=== PATIENT | male | born 1950 | race Caucasian/White ===

== ENCOUNTER 2016-04-24 18:47 | Emergency (ER) | payer MEDICARE, OTHER ==
--- NOTE | 2016-04-24 20:10 | EDM.PDOC ---
ED HPI RENAL/ - General Chief Complaint: Genitourinary Problem Stated Complaint: CATHEDAR Time Seen by Provider: 04/24/16 19:55 Source: Reports: Patient History Limitations: Reports: No limitations - History of Present Illness INITIAL COMMENTS - FREE TEXT/NARRATIVE: 65 yo male with an indwelling johnston presents thinking his catheter is plugged. The catheter bag is still filling, but has some pressure. No fever. Has an appt coming up to see urology. Drinks a lot of water daily. Symptom Onset Date: 04/24/16 Timing/Duration: Reports: Hour(s):, Gradual onset Location: Reports: suprapubic Quality: Reports: fullness Severity: mild Improves with: Reports: other (None) Worsens with: Reports: other (None) Context: Reports: other (indwelling johnston x 2 weeks.) Associated Symptoms: Reports: denies other symptoms Treatment(s) AMBULANCE OFFICER: Reports: Other (see below) (none) - Related Data Allergies/ADRs: Allergies Allergy/AdvReac Type Severity Reaction Status Date / Time No Known Allergies Allergy Verified 04/15/16 17:14 Home Meds: Home Meds Atenolol [Tenormin] 25 mg PO DAILY 01/27/16 [History] NIFEdipine [Procardia XL] 30 mg PO DAILY 01/27/16 [History] Polyethylene Glycol 3350 [MiraLAX] 17 gm PO DAILY 01/29/16 [History] RABEprazole Sodium [Rabeprazole Sodium] 60 mg PO BID 02/19/16 [History] Alfuzosin HCl [Alfuzosin HCl ER] 10 mg PO DAILY 04/07/16 [History] Aspirin [Halfprin] 81 mg PO DAILY 04/07/16 [History] Finasteride 5 mg PO DAILY 04/07/16 [History] traMADol HCl [Tramadol HCl] 50 mg PO Q8HR PRN 04/07/16 [History] Past Medical History - Past Health History Medical/Surgical History: Denies Medical/Surgical History HEENT History: Reports: Impaired vision Cardiovascular History: Reports: Hypertension Gastrointestinal History: Reports: Chronic constipation, Diverticulosis, Gastritis Genitourinary History: Reports: Prostate disorder Other Genitourinary History: HX OF ENLARGED PROSTATE - Infectious Disease History Infectious Disease History: Reports: Chicken pox, Measles - Past Surgical History GI Surgical History: Reports: Appendectomy, Cholecystectomy, Colonoscopy Social & Family History - Family History Family Medical History: Unobtainable - Tobacco Use Smoking Status *Q: Never Smoker Second Hand Smoke Exposure: No - Caffeine Use Caffeine Use: Reports: Coffee - Recreational Drug Use Recreational Drug Use: No ED ROS GENERAL - Review of Systems Review Of Systems: See Below Constitutional: Reports: no symptoms Respiratory: Reports: no symptoms Cardiovascular: Reports: No symptoms GI/Abdominal: Reports: Other (mild suprapubic pressure) : Denies: dysuria, flank pain, frequency, hematuria, urgency, urinary retention Musculoskeletal: Reports: no symptoms ED EXAM, RENAL/ - Physical Exam Exam: See Below Exam Limited By: No limitations General Appearance: alert, WD/WN, no apparent distress Eye Exam: bilateral eye: normal inspection Ears: normal external exam, normal canal, hearing grossly normal Nose: normal inspection, normal mucosa, no blood Throat/Mouth: Normal inspection, Normal lips, Normal gums, Normal oropharynx, Normal voice, No airway compromise Head: atraumatic, normocephalic Neck: normal inspection Respiratory/Chest: no respiratory distress, no accessory muscle use GI/Abdominal: soft, non tender Back Exam: normal inspection Extremities: normal inspection, normal range of motion, non-tender, no pedal edema Neurological: alert, oriented, CN II-XII intact, normal cognition, normal gait, no motor/sensory deficits Psychiatric: normal affect, normal mood Skin Exam: Warm, Dry, Intact, Normal color, No rash Lymphatic: no adenopathy Course - Vital Signs Text/Narrative:: Accu Check 87 bladder scan-almost no urine measured in bladder - Orders/Labs/Meds Orders: Active Orders 24 hr Category Date Time Status Accu Check [Blood Glucose Check, Bedside] [RC] ONETIME Care 04/24/16 19:55 Active Labs: Laboratory Tests 04/24/16 04/24/16 Range/Units 19:54 20:03 POC Glucose 87 (80-116) mg/dL Urine Color Yellow (YELLOW) Urine Appearance Clear (CLEAR) Urine pH 7.0 H (5.0-6.5) Ur Specific [place] 1.005 L (1.010-1.025) Urine Protein Negative (NEGATIVE) mg/dL Urine Glucose (UA) Normal (NEGATIVE) mg/dL Urine Ketones Negative (NEGATIVE) mg/dL Urine Occult Blood Large H (NEGATIVE) Urine Nitrite Negative (NEGATIVE) Urine Bilirubin Negative (NEGATIVE) Urine Urobilinogen Normal (NEGATIVE) mg/dL Ur Leukocyte Esterase Negative (NEGATIVE) Urine RBC 5-10 (0) Urine WBC 0-5 (0) Ur Squamous Epith Cells Occasional (NS,R,O) Urine Bacteria Rare H (NS) Departure - Departure Time of Disposition: 20:27 Disposition: Home, Self-Care 01 Condition: good Clinical Impression: Encounter for assessment of Johnston catheter - My Orders Last 24 Hours: My Active Orders 04/24/16 19:55 Accu Check [Blood Glucose Check, Bedside] [RC] ONETIME - Assessment/Plan Last 24 Hours: My Active Orders 04/24/16 19:55 Accu Check [Blood Glucose Check, Bedside] [RC] ONETIME
[2016-04-24 20:35] VITALS: BP 141/79
== END 2016-04-24 20:35 | disposition home or self-care (01) ==
LOC: FB.ED 18:47
DX: Z46.6 Encounter for fitting and adjustment of urinary device (principal); I10 Essential (primary) hypertension; Z79.82 Long term (current) use of aspirin; Z79.899 Other long term (current) drug therapy; Z90.49 Acquired absence of other specified parts of digestive tract
CPT/HCPCS: 81001; 82962; 99281; 99283

== ENCOUNTER 2016-06-10 18:47 | Emergency (ER) | payer MEDICARE, OTHER ==
--- NOTE | 2016-06-10 19:12 | EDM.PDOC ---
ED HPI RENAL/ - General Stated Complaint: blood in urine Time Seen by Provider: 06/10/16 18:50 Source: Reports: Patient, Family History Limitations: Reports: No limitations - History of Present Illness INITIAL COMMENTS - FREE TEXT/NARRATIVE: c/o blood in urine x 12h h/o difficulty voiding x ~6m, saw urologist Dr Yusuf, cystoscopy apparently was neg, no bx done, no dx of CA, told his bladder muscle was "weak", bladder not enlarged or contracted, went for bladder manometry 05/07, bladder filled with water and a sensor placed in rectum and bladder, pt was supposed to void but was unable to do so. He began self cath QID on 05/07 which he did for 3-4d, then able to void better and has cath'ed 1-2x/d ever since. Today he had clots when he cathed, some discomfort, no f/c/d, no n/v, nl BM. No back pain. Told his prostate is "slightly enlarged" but is not causing his difficulty voiding. Meds: include alfuzosin 10 mg daily and finasteride 5 mg daily, also takes nifedipine, atenolol, ASA, on tramadol prn and rabeprazole and Miralax. - Related Data Allergies/ADRs: Allergies Allergy/AdvReac Type Severity Reaction Status Date / Time No Known Allergies Allergy Verified 06/10/16 19:02 Home Meds: Home Meds Atenolol [Tenormin] 25 mg PO DAILY 01/27/16 [History] NIFEdipine [Procardia XL] 30 mg PO DAILY 01/27/16 [History] Polyethylene Glycol 3350 [MiraLAX] 17 gm PO DAILY 01/29/16 [History] RABEprazole Sodium [Rabeprazole Sodium] 60 mg PO BID 02/19/16 [History] Alfuzosin HCl [Alfuzosin HCl ER] 10 mg PO DAILY 04/07/16 [History] Aspirin [Halfprin] 81 mg PO DAILY 04/07/16 [History] Finasteride 5 mg PO DAILY 04/07/16 [History] traMADol HCl [Tramadol HCl] 50 mg PO Q8HR PRN 04/07/16 [History] Past Medical History - Past Health History Medical/Surgical History: Denies Medical/Surgical History HEENT History: Reports: Impaired vision Cardiovascular History: Reports: Hypertension Gastrointestinal History: Reports: Chronic constipation, Diverticulosis, Gastritis Genitourinary History: Reports: Prostate disorder Other Genitourinary History: HX OF ENLARGED PROSTATE - Infectious Disease History Infectious Disease History: Reports: Chicken pox, Measles - Past Surgical History GI Surgical History: Reports: Appendectomy, Cholecystectomy, Colonoscopy Social & Family History - Family History Family Medical History: Unobtainable - Tobacco Use Smoking Status *Q: Never Smoker Second Hand Smoke Exposure: No - Caffeine Use Caffeine Use: Reports: Coffee - Recreational Drug Use Recreational Drug Use: No ED ROS GENERAL - Review of Systems Review Of Systems: See Below Constitutional: Reports: no symptoms HEENT: Reports: No symptoms Respiratory: Reports: No Symptoms Endocrine: Reports: no symptoms GI/Abdominal: Reports: No symptoms : Reports: hematuria, urinary retention Musculoskeletal: Reports: no symptoms Skin: Reports: no symptoms Neurological: Reports: No Symptoms Psychiatric: Reports: No symptoms Hematologic/Lymphatic: Reports: no symptoms Immunologic: Reports: no symptoms ED EXAM, RENAL/ - Physical Exam Exam: See Below Exam Limited By: Other (alert, nonill) General Appearance: alert, WD/WN, no apparent distress Nose: normal inspection, normal mucosa, no blood Throat/Mouth: Normal inspection, Normal lips, Normal voice, No airway compromise Head: atraumatic, normocephalic Neck: normal inspection, supple Respiratory/Chest: no respiratory distress, lungs clear, normal breath sounds, prolonged expiration Cardiovascular: regular rate, rhythm GI/Abdominal: soft, non tender, no distention Back Exam: normal inspection, full range of motion, other (no CVAT) Extremities: normal inspection, normal range of motion, non-tender, no pedal edema Neurological: alert, oriented, CN II-XII intact, normal cognition, normal gait, no motor/sensory deficits Psychiatric: normal affect, normal mood Skin Exam: Warm, Dry, Intact, Normal color, No rash Lymphatic: no adenopathy Course - Vital Signs Last Recorded V/S: Last Vital Signs Temp 36.7 C 06/10/16 19:10 Pulse 69 06/10/16 19:10 Resp 18 06/10/16 19:10 BP 255/88 H 06/10/16 19:10 Pulse Ox 100 06/10/16 19:10 - Orders/Labs/Meds Orders: Active Orders 24 hr Category Date Time Status Bladder Irrigation [RC] CONTINUOUS Care 06/10/16 19:07 Active CULTURE URINE [RM] Stat Lab 06/10/16 18:50 Received Labs: Laboratory Tests 06/10/16 06/10/16 06/10/16 Range/Units 18:50 19:10 19:10 WBC 3.7 L (4.5-12.0) X10-3/uL RBC 4.42 (4.30-5.75) x10(6)uL Hgb 13.9 (11.5-15.5) g/dL Hct 41.4 (30.0-51.3) % MCV 93.8 (80-96) fL MCH 31.5 (27.7-33.6) pg MCHC 33.6 (32.2-35.4) g/dL RDW 14.1 (11.5-15.5) % Plt Count 156 (125-369) X10(3)uL MPV 9.4 (7.4-10.4) fL Neut % (Auto) 61.3 (46-82) % Lymph % (Auto) 21.6 (13-37) % Pettis % (Auto) 11.9 (4-12) % Eos % (Auto) 3 (1.0-5.0) % Baso % (Auto) 3 H (0-2) % Neut # (Auto) 2.3 (1.6-8.3) # Lymph # (Auto) 0.8 (0.6-5.0) # Pettis # (Auto) 0.4 (0.0-1.3) # Eos # (Auto) 0.1 (0.0-0.8) # Baso # (Auto) 0.1 (0.0-0.2) # PT 10.7 (8.7-11.1) INR 1.06 (0.89-1.13) Sodium (135-145) mmol/L Potassium (3.5-5.3) mmol/L Chloride (100-110) mmol/L Carbon Dioxide (23-29) mmol/L BUN (8-23) mg/dL Creatinine (0.6-1.3) mg/dL Est Cr Clr Drug Dosing Estimated GFR (MDRD) (>60) BUN/Creatinine Ratio (9-20) Glucose (80-116) mg/dL Calcium (8.6-10.2) mg/dL Total Bilirubin (0.1-1.3) mg/dL AST (5-27) IU/L ALT (14-26) IU/L Alkaline Phosphatase (56-112) IU/L C-Reactive Protein (0.0-1.0) mg/dL Total Protein (6.0-8.0) g/dL Albumin (3.2-4.6) g/dL Globulin g/dL Albumin/Globulin Ratio Urine Color Red (YELLOW) Urine Appearance Clear (CLEAR) Urine pH 7.0 H (5.0-6.5) Ur Specific [place] 1.010 (1.010-1.025) Urine Protein 500 H (NEGATIVE) mg/dL Urine Glucose (UA) Normal (NEGATIVE) mg/dL Urine Ketones Negative (NEGATIVE) mg/dL Urine Occult Blood Large H (NEGATIVE) Urine Nitrite Negative (NEGATIVE) Urine Bilirubin Negative (NEGATIVE) Urine Urobilinogen Normal (NEGATIVE) mg/dL Ur Leukocyte Esterase Negative (NEGATIVE) Urine RBC >100 H (0) Urine WBC 0-5 (0) Ur Squamous Epith Cells Few H (NS,R,O) Urine Bacteria Few H (NS) 06/10/ Range/Units 19:10 WBC (4.5-12.0) X10-3/uL RBC (4.30-5.75) x10(6)uL Hgb (11.5-15.5) g/dL Hct (30.0-51.3) % MCV (80-96) fL MCH (27.7-33.6) pg MCHC (32.2-35.4) g/dL RDW (11.5-15.5) % Plt Count (125-369) X10(3)uL MPV (7.4-10.4) fL Neut % (Auto) (46-82) % Lymph % (Auto) (13-37) % [place] % (Auto) (4-12) % Eos % (Auto) (1.0-5.0) % Baso % (Auto) (0-2) % Neut # (Auto) (1.6-8.3) # Lymph # (Auto) (0.6-5.0) # Pettis # (Auto) (0.0-1.3) # Eos # (Auto) (0.0-0.8) # Baso # (Auto) (0.0-0.2) # PT (8.7-11.1) INR (0.89-1.13) Sodium 137 (135-145) mmol/L Potassium 3.6 (3.5-5.3) mmol/L Chloride 103 (100-110) mmol/L Carbon Dioxide 26 (23-29) mmol/L BUN 9 (8-23) mg/dL Creatinine 0.9 (0.6-1.3) mg/dL Est Cr Clr Drug Dosing TNP Estimated GFR (MDRD) > 60 (>60) BUN/Creatinine Ratio 10.0 (9-20) Glucose 105 (80-116) mg/dL Calcium 8.8 (8.6-10.2) mg/dL Total Bilirubin 0.7 (0.1-1.3) mg/dL AST 17 D (5-27) IU/L ALT 19 D (14-26) IU/L Alkaline Phosphatase 64 (56-112) IU/L C-Reactive Protein < 0.5 (0.0-1.0) mg/dL Total Protein 6.9 (6.0-8.0) g/dL Albumin 3.8 (3.2-4.6) g/dL Globulin 3.1 g/dL Albumin/Globulin Ratio 1.2 Urine Color (YELLOW) Urine Appearance (CLEAR) Urine pH (5.0-6.5) Ur Specific [place] (1.010-1.025) Urine Protein (NEGATIVE) mg/dL Urine Glucose (UA) (NEGATIVE) mg/dL Urine Ketones (NEGATIVE) mg/dL Urine Occult Blood (NEGATIVE) Urine Nitrite (NEGATIVE) Urine Bilirubin (NEGATIVE) Urine Urobilinogen (NEGATIVE) mg/dL Ur Leukocyte Esterase (NEGATIVE) Urine RBC (0) Urine WBC (0) Ur Squamous Epith Cells (NS,R,O) Urine Bacteria (NS) Meds: Medications Discontinued Medications Generic Name Dose Route Start Last Admin Trade Name Freq PRN Reason Stop Dose Admin Lidocaine HCl 15 ml 06/10/16 19:15 06/10/16 20:03 Xylocaine 2% Viscous PO 06/10/16 19:16 15 ml ONETIME ONE Administration - Re-Assessments/Exams Free Text/Narrative Re-Assessment/Exam: 06/10/16 20:30 labs reviewed with pt, all unremarkable, 2.7 liter NS used to irrigate the bladder, red urine turned light pink, however no clots in effluent, pt had trouble with leg bag in past, kept getting occluded, however there was molly blood without clots that followed the catheter as it was gently removed, this suggests that the bleeding was from the urethra and not the bladder and that a johnston for 2d will be best to allow the urethera to heal, pt reluctantly agrees. No evidence of infection in urine. CBC and CRP wnl. Pt has apt with PCP Dr Godoy tomorrow afternoon. Departure - Departure Time of Disposition: 20:34 Disposition: [facility] Condition: good Clinical Impression: Gross hematuria, Urethral bleeding Additional Instructions: There is no evidence of infection. Your clotting proteins and platelets are all normal. Leave in the johnston for 48 hours to allow sufficient time for the leaking blood vessel in the urethra to heal. Continue your current meds. Call your urologist in the morning for further instructions. See Dr Godoy tomorrow afternoon as previously scheduled. Return to ED if you are feeling worse. Call your Physician or Return to Emergency Department if: * Your condition worsens in any way. * You develop fever greater than 100.4. * You have vomiting that does not stop with medications. * You have pain that is not controlled with medications. - My Orders Last 24 Hours: My Active Orders 06/10/16 18:50 CULTURE URINE [RM] Stat 06/10/16 19:07 Bladder Irrigation [RC] CONTINUOUS - Assessment/Plan Last 24 Hours: My Active Orders 06/10/16 18:50 CULTURE URINE [RM] Stat 06/10/16 19:07 Bladder Irrigation [RC] CONTINUOUS
[2016-06-10] MEDS ORDERED: Lidocaine 2% Viscous Solution 15 ML Cup PO ONE (19:15)
[2016-06-10 21:11] VITALS: BP 140/84
== END 2016-06-10 20:50 | disposition home or self-care (01) ==
LOC: FB.ED 18:47
DX: N36.8 Other specified disorders of urethra (principal); R31.0 Gross hematuria; I10 Essential (primary) hypertension; Z79.899 Other long term (current) drug therapy; Z79.82 Long term (current) use of aspirin; Z90.49 Acquired absence of other specified parts of digestive tract
CPT/HCPCS: 36415; 51700; 80053; 81001; 85025; 85610; 86140; 87086; 99283; A9270

== ENCOUNTER 2016-06-29 06:32 | Day surgery (SDC) | payer MEDICARE, OTHER ==
[2016-06-29] MEDS ORDERED: Sodium Chloride 0.9% 10 ML Syringe FLUSH PRN (06:45)
[2016-06-29] MEDS ORDERED: Lactated Ringers 1,000 ML IV SCH (06:45)
[2016-06-29] MEDS ORDERED: ceFAZolin 2 GM in Premix Bag 1 BAG IV ONE (07:45)
[2016-06-29] MEDS ORDERED: ePHEDrine 50 MG/ML SDV IV ONE (08:00)
[2016-06-29] MEDS ORDERED: Propofol 200 MG/20 ML SDV IV ONE (08:00)
[2016-06-29] MEDS ORDERED: Midazolam 1 MG/ML 2 ML SDV IV ONE (08:00)
[2016-06-29] MEDS ORDERED: Rocuronium 50 MG/5 ML Vial IV ONE (08:00)
[2016-06-29] MEDS ORDERED: Ondansetron 4 MG/2 ML SDV IVPUSH ONE (08:00)
[2016-06-29] MEDS ORDERED: Ketorolac 30 MG/ML SDV IVPUSH ONE (08:00)
[2016-06-29] MEDS ORDERED: Succinylcholine/Normal Saline 200 MG/10 ML Syringe IV ONE (08:00)
[2016-06-29] MEDS ORDERED: fentaNYL 100 MCG/2 ML SDV IV ONE (08:00)
--- NOTE | 2016-06-29 08:12 | PCM.PN ---
- General Info Date of Service: 06/29/16 - Review of Systems Systems Review Comment:: 65 y/o male here for repair of epigastric hernia. He is stable to proceed with no significant change in his health status since his recent clinic evaluation and EGD. The site is confirmed with the patient and marked. Expectations and anticipated post op instructions again reviewed with the patient. He agrees to proceed accepting risks which have been reviewed with the patient. - Patient Data Vitals - most recent: Last Vital Signs Temp 98.3 F 06/29/16 07:00 Pulse 64 06/29/16 07:00 Resp 15 06/29/16 07:00 BP 128/76 06/29/16 07:00 Pulse Ox 97 06/29/16 07:00 Weight - most recent: 189 lb Med Orders - Current: Current Medications Lactated Ringer's (Ringers, Lactated) 1,000 mls @ 125 mls/hr IV ASDIRECTED STACI Last Admin: 06/29/16 07:43 Dose: 125 mls/hr Cefazolin Sodium/Dextrose 2 gm (/ Premix) 50 mls @ 100 mls/hr IV ONETIME ONE Stop: 06/29/16 08:14 Last Admin: 06/29/16 07:43 Dose: 100 mls/hr Sodium Chloride (Saline Flush) 10 ml FLUSH ASDIRECTED PRN PRN Reason: Keep Vein Open - Problem List Review Problem List Initiated/Reviewed/Updated: Yes - My Orders Last 24 Hours: My Active Orders 06/28/16 12:53 Resuscitation Status Routine 06/29/16 06:45 Patient Status [ADT] Routine Antiembolic Devices [RC] .Routine Patient to Empty Bladder [RC] ASDIRECTED VTE/DVT Education [RC] Click To Edit Verify Patient Consent Obtain [RC] ASDIRECTED Lactated Ringers [Ringers, Lactated] 1,000 ml IV ASDIRECTED Sodium Chloride 0.9% [Saline Flush] 10 ml FLUSH ASDIRECTED PRN DVT/VTE Prophylaxis Reflex [OM.PC] Routine Peripheral IV Insertion Adult [OM.PC] Routine Sequential Compression Device [OM.PC] Routine 06/29/16 07:45 ceFAZolin [Ancef] 2 gm Premix Bag 1 bag IV ONETIME - Assessment Assessment:: Epigastric Hernia - Plan Plan:: Repair epigastric hernia
[2016-06-29] MEDS ORDERED: Bupivacaine 0.5%/EPINEPHrine 1:200,000 50 ML MDV INJECT ONE (08:51)
[2016-06-29] MEDS ORDERED: Lidocaine 1% 20 ML MDV INJECT ONE (08:51)
--- NOTE | 2016-06-29 09:06 | PCM.OPNOTE ---
- General Post-Op/Procedure Note Date of Surgery/Procedure: 06/29/16 Operative Procedure(s): Exploration of epigastric hernia repair site and removal of old sutures Findings: Intact mesh repair of epigastric hernia with old prolene sutures in place. No evidence of recurrence of hernia or of other complication Pre Op Diagnosis: Epigastric pain possible recurrence of epigastric hernia Post-Op Diagnosis: intact epigastric hernia repair with mesh and repair sutures in place Anesthesia Technique: General ET tube Primary Surgeon: Ander Gaspar Pathology: none Output, Urine Amount: 0 EBL in mLs: 10 Complications: None Condition: Good
[2016-06-29] MEDS ORDERED: Acetaminophen/HYDROcodone 325-5 MG Tab PO ONE (09:48)
[2016-06-29 10:55] VITALS: BP 98/55
--- NOTE | 2016-06-29 12:45 | OR ---
DATE OF OPERATION: 06/29/2016 SURGEON: Ander Gaspar MD PREOPERATIVE DIAGNOSIS: Epigastric pain, possible recurrent epigastric hernia. POSTOPERATIVE DIAGNOSIS: Intact epigastric hernia repair with retained repair sutures. OPERATION PERFORMED: Exploration of epigastric hernia repair with removal of old sutures. INDICATIONS FOR SURGERY: This 65-year-old male has localized epigastric pain and tenderness. This has not responded to other attempts at control of the pain, and workup has not identified any specific abnormalities in this area. The patient does have tenderness on palpation in the area where a previous epigastric hernia was repaired with mesh. The tenderness seems to be most significant where palpable sutures are noted. Exploration of this wound to look for any sign of recurrence or other abnormality is planned. FINDINGS: The mesh repair of the epigastric hernia is intact. The mesh is lying smoothly over the repair and there is no surrounding fascial defect. The mesh does not appear inflamed or otherwise abnormal in any way. Multiple Prolene sutures which had been placed to secure the mesh in position are still present and it is felt that the presence of these sutures especially on palpation is likely the source of the patient's pain. PROCEDURE IN DETAIL: The patient was taken to the operating room. He was given general endotracheal anesthesia. The epigastric area was sterilely prepped and draped. A vertical midline incision was made over the area where the patient had been having pain utilizing the healed surgical scar. Exploration down onto the underlying mesh was carried out. The full extent of the mesh is carefully examined. The surrounding fascia was also examined and found to be intact. The mesh was intact and solidly in place with no indication of any hernia recurrence. There were no visible signs of acute inflammation or infection but multiple permanent Prolene sutures were present and each of these was removed as it was felt that these were likely the source of the patient's pain. After removal of these sutures, careful palpation did not reveal any additional abnormalities or unusual folds in the mesh and no sign of complication was noted. The wound was then closed approximating the subcutaneous tissue with interrupted 4-0 Vicryl and the skin with running 4-0 Vicryl subcuticular stitch, Steri-Strips, and Benzoin. Antibiotic ointment and a sterile dressing was placed. The patient was then awakened, extubated, and taken from the operating room in satisfactory condition. ESTIMATED BLOOD LOSS: 10 mL. COMPLICATIONS: None. PROGNOSIS: Good. /[id number] NANDINI/CINDI
== END 2016-06-29 10:40 | disposition home or self-care (01) ==
LOC: FB.SDS 06:32
PROVIDERS: ATTEND Surgery
DX: K43.9 Ventral hernia without obstruction or gangrene (principal); Z88.8 Allergy status to other drugs, medicaments and biological substances; Z79.899 Other long term (current) drug therapy
CPT/HCPCS: 00750; 49560; A9270; J0690; J7120; J1885; J2250; J2405; J2704; J3010

== ENCOUNTER 2016-07-03 04:51 | Emergency (ER) | payer MEDICARE, OTHER ==
--- NOTE | 2016-07-03 05:51 | EDM.PDOC ---
ED HPI GENERAL MEDICAL PROBLEM - General Chief Complaint: General Stated Complaint: WEAKNESS,LIGHTHEADED Time Seen by Provider: 07/03/16 05:20 Source of Information: Reports: Patient, Old records History Limitations: Reports: No limitations - History of Present Illness INITIAL COMMENTS - FREE TEXT/NARRATIVE: Morgan comes in with a sense of dizziness ie loss of balance with tendency to fall towards the R for about a week, significance unknown. Sxs began with most recent hospitalization for repair of abdominal defect last week, and he initially thought this was related to Percocet tabs for sxs relief. He stopped this med after 1 day, but sxs never completely resolved. There is no headache, hearing loss, tinnitus, visual impairment, head injury, chest pain or SOB. He has tried no meds for relief of sxs or discussed with PCP. Abdominal Pain Score (Numeric/FACES): 2 - Related Data Allergies Allergy/AdvReac Type Severity Reaction Status Date / Time oxybutynin [From Ditropan] AdvReac Unknown Abdominal Verified 07/03/16 05:00 Pain Home Meds: Home Meds Atenolol [Tenormin] 25 mg PO DAILY 01/27/16 [History] NIFEdipine [Procardia XL] 30 mg PO DAILY 01/27/16 [History] Polyethylene Glycol 3350 [MiraLAX] 17 gm PO DAILY 01/29/16 [History] RABEprazole Sodium [Rabeprazole Sodium] 60 mg PO BID 02/19/16 [History] Alfuzosin HCl [Alfuzosin HCl ER] 10 mg PO DAILY 04/07/16 [History] Finasteride 5 mg PO DAILY 04/07/16 [History] Hydrocodone/Acetaminophen [Hydrocodon-Acetaminophen 5-325] 1 - 2 tab PO Q4HR PRN #20 tablet 06/29/16 [Rx] Past Medical History - Past Health History Medical/Surgical History: Denies Medical/Surgical History HEENT History: Reports: Impaired vision Cardiovascular History: Reports: Hypertension Respiratory History: Reports: None Gastrointestinal History: Reports: Chronic constipation, Diverticulosis, Gastritis Genitourinary History: Reports: Prostate disorder, Other (see below) Other Genitourinary History: HX OF ENLARGED PROSTATE, PATIENT HAS TO STRAIGHT CATH HIMSELF DUE TO BEING UNABLE TO VOID. Musculoskeletal History: Reports: None Neurological History: Reports: None Psychiatric History: Reports: None Endocrine/Metabolic History: Reports: None Hematologic History: Reports: None Immunologic History: Reports: None Oncologic (Cancer) History: Reports: None Dermatologic History: Reports: None - Infectious Disease History Infectious Disease History: Reports: Chicken pox, Measles - Past Surgical History Head Surgeries/Procedures: Reports: None HEENT Surgical History: Reports: Oral surgery Cardiovascular Surgical History: Reports: None Respiratory Surgical History: Reports: None GI Surgical History: Reports: Appendectomy, Cholecystectomy, Colonoscopy, Hernia , abdominal, Hernia, inguinal Endocrine Surgical History: Reports: None Neurological Surgical History: Reports: None Musculoskeletal Surgical History: Reports: None Oncologic Surgical History: Reports: None Social & Family History - Family History Family Medical History: Unobtainable - Tobacco Use Smoking Status *Q: Former Smoker Used Tobacco, but Quit: Yes Month Tobacco Last Used: unknown Second Hand Smoke Exposure: No - Caffeine Use Caffeine Use: Reports: None - Recreational Drug Use Recreational Drug Use: No ED ROS GENERAL - Review of Systems Review Of Systems: See Below Constitutional: Reports: weight loss (reported wt loss of #20 since first of the year) HEENT: Reports: Other (dizziness) Respiratory: Reports: No Symptoms Cardiovascular: Reports: No symptoms Endocrine: Reports: no symptoms GI/Abdominal: Reports: Abdominal pain (epigastric pains that have improved since surgery ) : Reports: urinary retention (self caths) Musculoskeletal: Reports: no symptoms Skin: Reports: no symptoms Neurological: Reports: Dizziness (loss of balance), Difficulty Walking Psychiatric: Reports: No symptoms Hematologic/Lymphatic: Reports: no symptoms Immunologic: Reports: no symptoms ED EXAM, GENERAL - Physical Exam Exam: See Below Exam Limited By: No limitations General Appearance: alert, WD/WN, no apparent distress, anxious Eye Exam: bilateral eye: normal fundi, normal inspection, PERRL Ears: normal external exam, normal canal, hearing grossly normal, normal TMs Nose: normal inspection Throat/Mouth: Normal inspection, Normal lips, Normal teeth, Normal oropharynx, Normal voice Head: normocephalic Neck: normal inspection, supple, non-tender, full range of motion Respiratory/Chest: lungs clear, normal breath sounds, no accessory muscle use, chest non-tender Cardiovascular: normal peripheral pulses, regular rate, rhythm, no murmur GI/Abdominal: normal bowel sounds, soft, no organomegaly, no distention, no mass , other (healing midline incision) (Male) Exam: Deferred Rectal (Males) Exam: Deferred Back Exam: normal inspection Extremities: normal inspection Neurological: alert, oriented, CN II-XII intact, normal cognition, no motor/ sensory deficits, abnormal gait (shuffling, hesitant) Psychiatric: normal affect, anxious Skin Exam: Warm, Dry, Intact Lymphatic: no adenopathy Course - Vital Signs Text/Narrative:: Morgan remained stable at the [facility] ED. CBC noted Hgb 15.0 gm, WBC 5,000, plts 172,000; Troponin I <0.01, non FBS 117 mg%, other values WNL on CMP; ekg noting NSR, KS 0.208 sec; TSH normal, ESR normal; Head CT w and wo contrast: no diagnostic abnormality. An explanation for imbalance could not be determined with certainty at this time. Follow up with PCP. Last Recorded V/S: Last Vital Signs Temp 36.3 C 07/03/16 05:08 Pulse 78 07/03/16 05:08 Resp 20 07/03/16 05:08 BP 135/90 07/03/16 05:08 Pulse Ox 98 07/03/16 05:08 Orthostatic Blood Pressure [ 123/73 Standing] Orthostatic Blood Pressure [ 128/77 Sitting] Orthostatic Blood Pressure [ 135/79 Supine] - Orders/Labs/Meds Orders: Active Orders 24 hr Category Date Time Status EKG Documentation Completion [RC] ASDIRECTED Care 07/03/16 05:27 Active Orthostatic Vital Signs [RC] ASDIRECTED Care 07/03/16 05:37 Active Head w wo Cont [CT] Stat Exams 07/03/16 06:42 Taken Sodium Chloride 0.9% [Saline Flush] Med 07/03/16 07:06 Active 10 ml FLUSH ASDIRECTED PRN Saline Lock Insert [OM.PC] Routine Oth 07/03/16 07:06 Ordered EKG 12 Lead [EK] Routine Ther 07/03/16 05:27 Ordered Medication Orders Sodium Chloride (Saline Flush) 10 ml FLUSH ASDIRECTED PRN PRN Reason: Keep Vein Open Last Admin: 07/03/16 07:08 Dose: 10 ml Labs: Laboratory Tests 07/03/16 07/03/16 07/03/16 Range/Units 05:00 05:53 05:53 WBC 5.0 (4.5-12.0) X10-3/uL RBC 4.80 (4.30-5.75) x10(6)uL Hgb 15.0 (11.5-15.5) g/dL Hct 44.7 (30.0-51.3) % MCV 93.2 (80-96) fL MCH 31.3 (27.7-33.6) pg MCHC 33.5 (32.2-35.4) g/dL RDW 13.8 (11.5-15.5) % Plt Count 172 (125-369) X10(3)uL MPV 9.5 (7.4-10.4) fL Neut % (Auto) 68.5 (46-82) % Lymph % (Auto) 18.2 (13-37) % [place] % (Auto) 9.9 (4-12) % Eos % (Auto) 1 (1.0-5.0) % Baso % (Auto) 2 (0-2) % Neut # (Auto) 3.4 (1.6-8.3) # Lymph # (Auto) 0.9 (0.6-5.0) # [place] # (Auto) 0.5 (0.0-1.3) # Eos # (Auto) 0.1 (0.0-0.8) # Baso # (Auto) 0.1 (0.0-0.2) # ESR (0-15) mm/hr Sodium 135 (135-145) mmol/L Potassium 3.5 (3.5-5.3) mmol/L Chloride 103 (100-110) mmol/L Carbon Dioxide 25 (23-29) mmol/L BUN 9 (8-23) mg/dL Creatinine 0.8 (0.6-1.3) mg/dL Est Cr Clr Drug Dosing TNP Estimated GFR (MDRD) > 60 (>60) BUN/Creatinine Ratio 11.3 (9-20) Glucose 117 H (80-116) mg/dL Calcium 9.2 (8.6-10.2) mg/dL Total Bilirubin 0.6 (0.1-1.3) mg/dL AST 19 D (5-27) IU/L ALT 17 D (14-26) IU/L Alkaline Phosphatase 65 (56-112) IU/L Troponin I (0.02-0.06) NG/ML Total Protein 7.6 (6.0-8.0) g/dL Albumin 4.2 (3.2-4.6) g/dL Globulin 3.4 g/dL Albumin/Globulin Ratio 1.2 TSH, Ultra Sensitive (0.4-5.5) nlU/mL Urine Color Yellow (YELLOW) Urine Appearance Clear (CLEAR) Urine pH 8.0 H (5.0-6.5) Ur Specific [place] 1.015 (1.010-1.025) Urine Protein Negative (NEGATIVE) mg/dL Urine Glucose (UA) Normal (NEGATIVE) mg/dL Urine Ketones Negative (NEGATIVE) mg/dL Urine Occult Blood Negative (NEGATIVE) Urine Nitrite Negative (NEGATIVE) Urine Bilirubin Negative (NEGATIVE) Urine Urobilinogen Normal (NEGATIVE) mg/dL Ur Leukocyte Esterase Negative (NEGATIVE) Urine RBC 0-5 (0) Urine WBC 0-5 (0) Ur Squamous Epith Cells Occasional (NS,R,O) Urine Bacteria Few H (NS) 07/03/16 07/03/16 07/03/16 Range/Units 05:53 05:53 05:53 WBC (4.5-12.0) X10-3/uL RBC (4.30-5.75) x10(6)uL Hgb (11.5-15.5) g/dL Hct (30.0-51.3) % MCV (80-96) fL MCH (27.7-33.6) pg MCHC (32.2-35.4) g/dL RDW (11.5-15.5) % Plt Count (125-369) X10(3)uL MPV (7.4-10.4) fL Neut % (Auto) (46-82) % Lymph % (Auto) (13-37) % [place] % (Auto) (4-12) % Eos % (Auto) (1.0-5.0) % Baso % (Auto) (0-2) % Neut # (Auto) (1.6-8.3) # Lymph # (Auto) (0.6-5.0) # [place] # (Auto) (0.0-1.3) # Eos # (Auto) (0.0-0.8) # Baso # (Auto) (0.0-0.2) # ESR 5 (0-15) mm/hr Sodium (135-145) mmol/L Potassium (3.5-5.3) mmol/L Chloride (100-110) mmol/L Carbon Dioxide (23-29) mmol/L BUN (8-23) mg/dL Creatinine (0.6-1.3) mg/dL Est Cr Clr Drug Dosing Estimated GFR (MDRD) (>60) BUN/Creatinine Ratio (9-20) Glucose (80-116) mg/dL Calcium (8.6-10.2) mg/dL Total Bilirubin (0.1-1.3) mg/dL AST (5-27) IU/L ALT (14-26) IU/L Alkaline Phosphatase (56-112) IU/L Troponin I < 0.01 L (0.02-0.06) NG/ML Total Protein (6.0-8.0) g/dL Albumin (3.2-4.6) g/dL Globulin g/dL Albumin/Globulin Ratio TSH, Ultra Sensitive 1.18 (0.4-5.5) nlU/mL Urine Color (YELLOW) Urine Appearance (CLEAR) Urine pH (5.0-6.5) Ur Specific [place] (1.010-1.025) Urine Protein (NEGATIVE) mg/dL Urine Glucose (UA) (NEGATIVE) mg/dL Urine Ketones (NEGATIVE) mg/dL Urine Occult Blood (NEGATIVE) Urine Nitrite (NEGATIVE) Urine Bilirubin (NEGATIVE) Urine Urobilinogen (NEGATIVE) mg/dL Ur Leukocyte Esterase (NEGATIVE) Urine RBC (0) Urine WBC (0) Ur Squamous Epith Cells (NS,R,O) Urine Bacteria (NS) Meds: Medications Generic Name Dose Route Start Last Admin Trade Name Freq PRN Reason Stop Dose Admin Sodium Chloride 10 ml 07/03/16 07:06 07/03/16 07:08 Saline Flush FLUSH 10 ml ASDIRECTED PRN Administration Keep Vein Open Discontinued Medications Generic Name Dose Route Start Last Admin Trade Name Freq PRN Reason Stop Dose Admin Iopamidol 50 ml 07/03/16 06:56 07/03/16 07:13 Isovue-370 (76%) IV 07/03/16 06:57 50 ml ONETIME ONE Administration Departure - Departure Time of Disposition: 07:50 Disposition: Home, Self-Care 01 Condition: fair Clinical Impression: Dizziness of unknown cause Forms: ED Department Discharge - Problem List & Annotations (1) Dizziness of unknown cause SNOMED Code(s): 562840878 Code(s): R42 - DIZZINESS AND GIDDINESS Status: Acute Current Visit: Yes Annotation/Comment:: Dizziness ie imbalance NOS. I advised follow up with PCP. No meds dispensed. - Problem List Review Problem List Initiated/Reviewed/Updated: Yes - My Orders Last 24 Hours: My Active Orders 07/03/16 05:27 EKG Documentation Completion [RC] ASDIRECTED EKG 12 Lead [EK] Routine 07/03/16 05:37 Orthostatic Vital Signs [RC] ASDIRECTED 07/03/16 06:42 Head w wo Cont [CT] Stat 07/03/16 07:06 Sodium Chloride 0.9% [Saline Flush] 10 ml FLUSH ASDIRECTED PRN Saline Lock Insert [OM.PC] Routine - Assessment/Plan Last 24 Hours: My Active Orders 07/03/16 05:27 EKG Documentation Completion [RC] ASDIRECTED EKG 12 Lead [EK] Routine 07/03/16 05:37 Orthostatic Vital Signs [RC] ASDIRECTED 07/03/16 06:42 Head w wo Cont [CT] Stat 07/03/16 07:06 Sodium Chloride 0.9% [Saline Flush] 10 ml FLUSH ASDIRECTED PRN Saline Lock Insert [OM.PC] Routine Plan: Follow up with PCP.
[2016-07-03] MEDS ORDERED: Iopamidol 755 Mg/ML 75 ML Bottle IV ONE (06:56)
[2016-07-03] MEDS ORDERED: Sodium Chloride 0.9% 10 ML Syringe FLUSH PRN (07:06)
[2016-07-03 08:08] VITALS: BP 106/72
== END 2016-07-03 07:54 | disposition home or self-care (01) ==
LOC: FB.ED 04:51
DX: R42 Dizziness and giddiness (principal); I10 Essential (primary) hypertension; N40.1 Benign prostatic hyperplasia with lower urinary tract symptoms; R33.8 Other retention of urine; Z87.891 Personal history of nicotine dependence; Z88.8 Allergy status to other drugs, medicaments and biological substances; Z79.899 Other long term (current) drug therapy
CPT/HCPCS: 36415; 70470; 80053; 81001; 84443; 84484; 85025; 85651; 93005; 99284; J7050; Q9967; 99282

== ENCOUNTER 2021-11-11 22:40 | Emergency (ER) | payer MEDICARE, OTHER ==
[2021-11-11 23:36] LABS: ESTIMATED GFR 71 mL/min (>60)
[2021-11-11 23:59] VITALS: BP 135/77; PULSE 84
== END 2021-11-12 00:13 | disposition home or self-care (01) ==
LOC: FB.ED 22:40
DX: R35.0 Frequency of micturition (principal); I10 Essential (primary) hypertension; Z88.8 Allergy status to other drugs, medicaments and biological substances; Z79.82 Long term (current) use of aspirin; Z79.899 Other long term (current) drug therapy; Z90.49 Acquired absence of other specified parts of digestive tract
CPT/HCPCS: 36415; 51798; 80048; 81001; 85025; 99283